=== PATIENT | male | born 1945 | race Caucasian/White ===

== ENCOUNTER 2017-11-13 10:58 | Emergency (ER) | payer MEDICARE ==
[~2017-11-13] VITALS: Ht 175.3 cm; Wt 74.8 kg
--- NOTE | 2017-11-13 11:28 | NUR ---
Dr Perez at the bedside for MSE.
[2017-11-13] MEDS ORDERED: TETRACAINE HCL 0.5% OPHT DROP 2 ML BOTTLE OP ONE (11:30)
[2017-11-13] MEDS ORDERED: FLUORESCEIN SODIUM 1 MG STRIP OP ONE (11:30)
[2017-11-13] MEDS ORDERED: TETRACAINE HCL 0.5% OPHT DROP 2 ML BOTTLE ONE (11:31)
[2017-11-13] MEDS ORDERED: FLUORESCEIN SODIUM 1 MG STRIP ONE (11:31)
[2017-11-13 11:47] VITALS: BP 144/70
--- NOTE | 2017-11-13 11:47 | NUR ---
Patient discharged to home in stable conditon. Written and verbal after care instructions given. Patient verbalizes understanding of instructions.
== END 2017-11-13 11:48 | disposition home or self-care (01) ==
LOC: ER 10:58
DX: B02.31 Zoster conjunctivitis (principal); I10 Essential (primary) hypertension
CPT/HCPCS: A4663

== ENCOUNTER 2018-03-09 18:12 | Emergency (ER) | payer MEDICARE, BC ==
[~2018-03-09] VITALS: Ht 170.2 cm; Wt 74.8 kg
[2018-03-09] MEDS ORDERED: TELM1TAB6 PO (18:27)
--- NOTE | 2018-03-09 19:04 | NUR ---
sbar report to yvette loredo
--- NOTE | 2018-03-09 19:10 | NUR ---
Assumed care of patient. no acute distress noted. patient noted with dry, non-productive cough.
[2018-03-09] MEDS ORDERED: BENZONATATE 100 MG CAPSULE PO ONE (19:15)
[2018-03-09] MEDS ORDERED: ALBUTEROL SULFATE 2.5 MG/3 ML NEBU NEB ONE (19:15)
[2018-03-09] MEDS ORDERED: IPRATROPIUM BROMIDE 0.5 MG/2.5 ML NEBU NEB ONE (19:15)
[2018-03-09] MEDS ORDERED: ACETAMINOPHEN ES 500 MG TABLET PO ONE (19:15)
[2018-03-09] MEDS ORDERED: BENZONATATE 100 MG CAPSULE ONE (19:40)
[2018-03-09] MEDS ORDERED: ACETAMINOPHEN ES 500 MG TABLET ONE (19:40)
[2018-03-09] MEDS ORDERED: ALBUTEROL SULFATE 2.5 MG/3 ML NEBU ONE (19:41)
[2018-03-09] MEDS ORDERED: IPRATROPIUM BROMIDE 0.5 MG/2.5 ML NEBU ONE (19:42)
[2018-03-09 19:45] LABS: *BILIRUBIN,URIN NEGATIVE (NEGATIVE); *BLOOD, URINE 2+ (NEGATIVE); *CLARITY,URINE CLEAR (CLEAR); *COLOR,URINE YELLOW (YELLOW); *KETONES,URINE NEGATIVE (NEGATIVE); *PROTEIN,URINE NEGATIVE (NEGATIVE); *UROBILINOGEN,URINE 0.2 E.U./dl (NORMAL); BASOPHILS # (AUTO) 0.1 K/uL (0.0-8.0); EOSINOPHILS # (AUTO) 0.1 K/uL (0.0-0.7); EOSINOPHILS % (AUTO) 1.2 % (0.0-7.0); HEMATOCRIT 44.2 % (36.7-47.1); HEMOGLOBIN 15.6 g/dL (12.5-16.3); LEUKOCYTE ESTERASE ,URINE NEGATIVE (NEGATIVE); LYMPHOCYTES # (AUTO) 1.3 K/uL (20.0-40.0); LYMPHOCYTES % (AUTO) 17.3 % (20.5-51.5); MEAN CORPUSCULAR HEMOGLOBIN 32.7 uug (23.8-33.4); MEAN CORPUSCULAR HGB CONC 35 g/dL (32.5-36.3); MEAN CORPUSCULAR VOLUME 92.7 fL (73.0-96.2); MONOCYTES # (AUTO) 0.8 K/uL (2.0-10.0); MONOCYTES % (AUTO) 10.7 % (0.0-11.0); NEUTROPHILS # (AUTO) 5.4 K/uL (1.8-8.9); NEUTROPHILS % (AUTO) 69.8 % (38.5-71.5); NITRITE, URINE NEGATIVE (NEGATIVE); PH,URINE 5.5 (5.0-8.0); PLATELET COUNT (AUTO) 142 K/uL (152-348); RED BLOOD CELL COUNT(AUTO) 4.77 MIL/uL (4.06-5.63); UGLUCOSE NEGATIVE (NEGATIVE); WHITE BLOOD COUNT (AUTO) 7.7 K/uL (3.6-10.2)
[2018-03-09 19:52] LABS: BACTERIA,URINE FEW /HPF (NONE SEEN); SQUAMOUS EPITHELIAL CELL,UR FEW /HPF (NONE SEEN); WBC,URINE 0-3 /HPF (0-3)
[2018-03-09 19:54] LABS: CARBON DIOXIDE 29 mmol/L (21-32); CHLORIDE 97 mmol/L (98-107); CREATININE 1.4 mg/dL (0.6-1.3); GLUCOSE 92 mg/dL (74-106); POTASSIUM 4.1 mmol/L (3.5-5.1); UREA NITROGEN, BLOOD 12 mg/dL (7-18)
--- NOTE | 2018-03-09 19:54 | NUR ---
RT at bedside for patient breathing tx.
[2018-03-09 20:08] LABS: ALANINE AMINOTRANSFERASE 26 U/L (16-63); ALKALINE PHOSPHATASE 77 U/L (50-136); ASPARTATE AMINOTRANSFERASE 25 U/L (15-37); BILIRUBIN,DIRECT 0.1 mg/dL (0.0-0.2); BILIRUBIN,TOTAL 0.6 mg/dL (0.2-1.0); TOTAL PROTEIN, SERUM 7.6 g/dL (6.4-8.2)
[2018-03-09] MEDS ORDERED: CEFTRIAXONE 1 G in IV DEXTROSE 5% 50 ML IV ONE (20:45)
[2018-03-09] MEDS ORDERED: CEFTRIAXONE 1 G VIAL ONE (20:48)
[2018-03-09] MEDS ORDERED: CEFTRIAXONE 1 G VIAL IM ONE (21:00)
--- NOTE | 2018-03-09 21:00 | NUR ---
Patient discharged to home in stable conditon. Written and verbal after care instructions given. Patient verbalizes understanding of instructions. Ambulated from ER with stable gait. All belongings with patient.
[2018-03-09 21:01] VITALS: BP 131/80
== END 2018-03-09 21:02 | disposition home or self-care (01) ==
LOC: ER 18:13
DX: J20.8 Acute bronchitis due to other specified organisms (principal); B97.89 Other viral agents as the cause of diseases classified elsewhere; I10 Essential (primary) hypertension; F17.210 Nicotine dependence, cigarettes, uncomplicated; Z79.899 Other long term (current) drug therapy
CPT/HCPCS: 36415; 71045; 80048; 80076; 81001; 83605; 83880; 84484; 85025; 85730; 87040 ×2; 87086; 93005; 94640; 96372; 99285; A4663; A9150; J0696; J3590; 70030-TC

== ENCOUNTER 2018-11-15 02:13 | Emergency (ER) | payer MEDICARE, BC ==
[~2018-11-15] VITALS: Ht 172.7 cm; Wt 75.1 kg
[~2018-11-15 02:13] MED LIST: TELM1TAB6 PO
--- NOTE | 2018-11-15 02:20 | NUR ---
Dr. Lauren at bedside for MSE.
[2018-11-15] MEDS ORDERED: ASPIRIN 81 MG TAB.CHEW ONE (02:28)
[2018-11-15] MEDS ORDERED: ONDANSETRON 4 MG/2 ML VIAL ONE (02:29)
[2018-11-15] MEDS ORDERED: HYDROMORPHONE 1 MG/1 ML DISP.SYRIN ONE (02:29)
[2018-11-15] MEDS ORDERED: LORAZEPAM 2 MG/1 ML VIAL ONE (02:30)
[2018-11-15] MEDS ORDERED: ASPIRIN 81 MG TAB.CHEW PO ONE (02:30)
[2018-11-15] MEDS ORDERED: ONDANSETRON 4 MG/2 ML VIAL IV ONE (02:30)
[2018-11-15] MEDS ORDERED: HYDROMORPHONE 1 MG/1 ML DISP.SYRIN IV ONE (02:30)
[2018-11-15] MEDS ORDERED: LORAZEPAM 2 MG/1 ML VIAL IV ONE (02:30)
--- NOTE | 2018-11-15 02:37 | NUR ---
Xray at bedside.
[2018-11-15 02:44] LABS: BASOPHILS # (AUTO) 0.1 K/uL (0.0-8.0); BASOPHILS % (AUTO) 0.7 % (0.0-2.0); EOSINOPHILS # (AUTO) 0.4 K/uL (0.0-0.7); EOSINOPHILS % (AUTO) 3.7 % (0.0-7.0); HEMOGLOBIN 14.3 g/dL (12.5-16.3); LYMPHOCYTES # (AUTO) 2.8 K/uL (20.0-40.0); LYMPHOCYTES % (AUTO) 27.7 % (20.5-51.5); MEAN CORPUSCULAR HEMOGLOBIN 32.4 uug (23.8-33.4); MEAN CORPUSCULAR HGB CONC 35 g/dL (32.5-36.3); MEAN CORPUSCULAR VOLUME 92.9 fL (73.0-96.2); MONOCYTES # (AUTO) 1.2 K/uL (2.0-10.0); MONOCYTES % (AUTO) 12.3 % (0.0-11.0); NEUTROPHILS # (AUTO) 5.6 K/uL (1.8-8.9); NEUTROPHILS % (AUTO) 55.6 % (38.5-71.5); PLATELET COUNT (AUTO) 168 K/uL (152-348); RED BLOOD CELL COUNT(AUTO) 4.41 MIL/uL (4.06-5.63)
[2018-11-15] MEDS ORDERED: IPRATROPIUM BROMIDE 0.5 MG/2.5 ML NEBU NEB ONE (02:45)
[2018-11-15] MEDS ORDERED: methylPREDNISolone SOD SUCC 125 MG/2 ML VIAL IV ONE (02:45)
[2018-11-15] MEDS ORDERED: ALBUTEROL SULFATE 2.5 MG/3 ML NEBU NEB ONE (02:45)
[2018-11-15] MEDS ORDERED: methylPREDNISolone SOD SUCC 125 MG/2 ML VIAL ONE (02:48)
--- NOTE | 2018-11-15 02:49 | NUR ---
Respiratory at bedside.
[2018-11-15] MEDS ORDERED: ALBUTEROL SULFATE 2.5 MG/3 ML NEBU ONE (02:52)
[2018-11-15] MEDS ORDERED: IPRATROPIUM BROMIDE 0.5 MG/2.5 ML NEBU ONE (02:53)
[2018-11-15 02:54] LABS: CARBON DIOXIDE 27 mmol/L (21-32); CHLORIDE 104 mmol/L (98-107); CREATININE 1.5 mg/dL (0.6-1.3); GLUCOSE 124 mg/dL (74-106); POTASSIUM 3.7 mmol/L (3.5-5.1); UREA NITROGEN, BLOOD 18 mg/dL (7-18)
[2018-11-15] MEDS ORDERED: MAG HYDROX/AL HYDROX/SIMETH 30 ML LIQUID UDC ONE (02:57)
[2018-11-15] MEDS ORDERED: SIMETHICONE 80 MG TAB.CHEW ONE (02:57)
[2018-11-15] MEDS ORDERED: SIMETHICONE 80 MG TAB.CHEW PO ONE (03:00)
[2018-11-15] MEDS ORDERED: MAG HYDROX/AL HYDROX/SIMETH 30 ML LIQUID UDC PO ONE (03:00)
[2018-11-15 03:07] LABS: ALANINE AMINOTRANSFERASE 19 U/L (16-63); ALKALINE PHOSPHATASE 61 U/L (50-136); ASPARTATE AMINOTRANSFERASE 15 U/L (15-37); BILIRUBIN,DIRECT 0.1 mg/dL (0.0-0.2); BILIRUBIN,TOTAL 0.4 mg/dL (0.2-1.0); TOTAL PROTEIN, SERUM 6.8 g/dL (6.4-8.2)
[2018-11-15] MEDS ORDERED: IV NORMAL SALINE 250 ML IV ONE (03:49)
[2018-11-15] MEDS ORDERED: SWABABLE VALVE TRANSFER SET EA MC ONE (03:49)
[2018-11-15] MEDS ORDERED: IOHEXOL 350 100 ML INFUS..BTL ONE (03:49)
--- NOTE | 2018-11-15 03:54 | NUR ---
Pt out of ER for CT.
--- NOTE | 2018-11-15 04:14 | NUR ---
Pt back to ER from CT.
--- NOTE | 2018-11-15 04:33 | NUR ---
Pt O2 sat 89% on room air, placed pt on O2 @2L/min via nasal cannula.
--- NOTE | 2018-11-15 06:21 | NUR ---
Patient discharged to home in stable conditon. Written and verbal after care instructions given. Patient verbalizes understanding of instructions. Patient ambulated out of ER with steady gait, no acute signs of distress, VSS, all belongings taken, IV site discontinued, to be driven via private vehicle by family.
[2018-11-15 06:23] VITALS: BP 103/60
== END 2018-11-15 06:24 | disposition home or self-care (01) ==
LOC: ER 02:14
DX: J20.9 Acute bronchitis, unspecified (principal); Z71.6 Tobacco abuse counseling; I10 Essential (primary) hypertension; E78.00 Pure hypercholesterolemia, unspecified; F17.210 Nicotine dependence, cigarettes, uncomplicated; Z79.899 Other long term (current) drug therapy
CPT/HCPCS: 36415; 71045; 71275; 80048; 80076; 83880; 84484 ×2; 85025; 85379; 85730; 87400; 93005; 94640; 96374; 96375; 99284; 99406; J1170; J2060; J2405; J2930; Q9967; 70030-TC; A4663; J3590; J7050